=== PATIENT | male | born 1990 | race Caucasian/White ===

== ENCOUNTER 2019-07-03 06:01 | Emergency (ER) | payer SELFPAY ==
[2019-07-03 06:59] VITALS: BMI 25.7
[2019-07-03] MEDS ORDERED: IBUPROFEN 600 MG TABLET (FP) PO ONE ×2 (07:53→08:00)
[2019-07-03] MEDS ORDERED: ONDANSETRON 4 MG TABLET PO PRN (07:54)
--- NOTE | 2019-07-03 07:54 | PDOC ---
History of Present Illness - General Chief Complaint: Chest Pain Stated Complaint: CHEST PAIN Time Seen by Provider: 07/03/19 07:17 - History of Present Illness Initial Comments: 07/03/19 08:21 29 y/o M no significant pmhx presenting to the ED with chest pain that started yesterday. The pain started after playing soccer and drinking more than 12 cans of beer yesterday evening. Pain is located on the left side of his chest is intermittent (approx. 5mins) and non-radiating. He was unable to describe it's quality. No relieving factors, pain exacerbated by lying on his left sided He rates the pain as a 5/10. He fell on his back and hit the back of his head. He denies nausea, vomiting, cough, sob, fevers, chills, diaphoresis. 07/03/19 08:34 Past History - Past Medical History Allergies/Adverse Reactions: Allergies Allergy/AdvReac Type Severity Reaction Status Date / Time No Known Allergies Allergy Verified 07/03/19 06:59 Home Medications: Ambulatory Orders NK [No Known Home Medication] 07/03/19 COPD: No - Suicide/Smoking/Psychosocial Hx Smoking History: Current every day smoker Number of Cigarettes Smoked Daily: 15 Information on smoking cessation initiated: No Hx Alcohol Use: Yes Drug/Substance Use Hx: No Review of Systems - Review of Systems Constitutional: No: Chills, Diaphoresis, Fever HEENTM: No: Eye Pain, Ear Pain Respiratory: No: Cough, Wheezing Cardiac (ROS): Yes: Symptoms Reported ABD/GI: No: Constipated, Diarrhea : No: Burning, Dysuria Musculoskeletal: No: Muscle Pain, Muscle Weakness Neurological: Yes: Headache. No: Numbness *Physical Exam - Vital Signs Last Vital Signs Temp Pulse Resp BP Pulse Ox 97.8 F 94 H 23 H 109/57 L 96 07/03/19 06:53 07/03/19 06:53 07/03/19 06:53 07/03/19 06:53 07/03/19 06:53 - Physical Exam General Appearance: Yes: Nourished, Appropriately Dressed, Alcohol on Breath. No: Apparent Distress HEENT: positive: Normal Voice. negative: Scleral Icterus (R), Scleral Icterus ( L) Neck: positive: Trachea midline, Supple Respiratory/Chest: positive: Chest Tender, Lungs Clear, Normal Breath Sounds, Other (Pain on left side of chest is reproducible on palpation). negative: Respiratory Distress, Accessory Muscle Use, Decreased Breath Sounds, Rales, Wheezing Cardiovascular: positive: Regular Rhythm, Regular Rate, S1, S2. negative: Edema , JVD Comments:: 07/03/19 08:32 radial pulses 2+ bilaterally Gastrointestinal/Abdominal: positive: Normal Bowel Sounds, Soft. negative: Pulsatile Mass, Decreased BS, Protuberent, Guarding Musculoskeletal: positive: Other (bruising on the right side of his back) Extremity: positive: Normal Capillary Refill, Normal Inspection, Normal Range of Motion Integumentary: positive: Normal Color, Dry, Warm Neurologic: positive: Fully Oriented, Alert Heart Score/ECG Review - History History: Slightly suspicious - Electrocardiogram EKG: Non specific repolarization disturbance - Age Age: </= 45 - Risk Factors Risk Factors Heart Score: No Hx Hypercholesterolemia, No Hx Hypertension, No Hx Diabetes, No Smoking History, No Positive family hx of cardiac disease, No Hx Obesity Based on the list above the patient has:: No risk factors known ED Treatment Course - LABORATORY CBC & Chemistry Diagram: 07/03/19 08:30 07/03/19 08:30 Medical Decision Making - Medical Decision Making 07/03/19 08:34 29 y/o M no significant pmhx presenting to the ED with chest pain that started yesterday. Labs/Imaging/Meds cbc,cmp,cxr pa & lateral, ekg, head ct w/o contrast, FAST Meds: motrin 600mg, 4mg Zofran, Boostrix Results FAST (-) no fluid seen. CXR: no evidence of pulmonary infiltrates, atelactasis, pleural effusion or pneumothorax no hilar adenopathy visualized osseous structures intact Head CT deformity of the left orbital medial wall consistent with chronic fracture no acute pathology identified calvarium is intact CMP/CBC: alt/ast 93/52 cbc wnl Patient seen and reassessed. Patient is AAOX3, NAD, able to ambulate, non- tremulous, and tolerating oral intake. VSS. Patient states that they feel safe going home and have a safe way to get home.. Discussed need to cut down on substance intake. *DC/Admit/Observation/Transfer Diagnosis at time of Disposition: Chest pain, muscular - Discharge Dispostion Disposition: HOME Condition at time of disposition: Stable - Referrals - Patient Instructions Printed Discharge Instructions: DI for Atypical Chest Pain, DI for Alcohol Abuse Additional Instructions: You were seen in the ER today for chest pain which is muscular in nature. You were also evaluated for a fall related to alcohol use. Please do not drink alcohol or ingest any mind-altering substances and drive or make important decisions. Please cut down on your substance use/abuse. 2) You were given information about substance use/abuse. Please review this literature. 3) If you have any worsening of symptoms please return to the ED immediately. 4) Please follow-up with your primary care doctor in the next 5-7 days for evaluation of symptoms. - Post Discharge Activity
[2019-07-03] MEDS ORDERED: ONDANSETRON *ODT* 4 MG TABLET ONE (08:00)
--- NOTE | 2019-07-03 08:02 | PDOC ---
*Physical Exam - Vital Signs Last Vital Signs Temp Pulse Resp BP Pulse Ox 97.8 F 94 H 23 H 109/57 L 96 07/03/19 06:53 07/03/19 06:53 07/03/19 06:53 07/03/19 06:53 07/03/19 06:53
--- NOTE | 2019-07-03 08:12 | PDOC ---
Attending Attestation - Resident Resident Name: CatiaMarsakila - ED Attending Attestation I have performed the following: I have examined & evaluated the patient, The case was reviewed & discussed with the resident, I agree w/resident's findings & plan, Exceptions are as noted - HPI HPI: 07/03/19 08:08 07/03/19 07:55 Ms. Singh is a 29 yo M who presents to the ER with a complaint of chest pain Pt story varies slightly each time it is asked but basically He states he was in his usual state of health Was playing soccer After playing soccer, he noted chest pain, located in the left chest, intermittent, 5/10, no radiation, pain is reproducible Pt denies chest wall trauma but does admit to gaps in his memory Pt states he drank heavily (>12 beers) Fell and struck his head and lacerated his back - Physicial Exam PE: 07/03/19 08:09 Pt is awake and alert Answers questions appropriately Pt seems intoxicated RRR CTA Abd non tender to palpation No deformities of extremities, moving all extremities appropriately 2 lacerations noted on right upper thoracic area, no active bleeding, no surrounding erythema Left occipital abrasion and hematoma - Medical Decision Making 07/03/19 08:11 29 yo M s/p injury while intoxicated Will do: basic labs CT head CXR boostrix Zofran/Motrin Re Assess 07/03/19 09:19 Laboratory Tests 07/03/19 08:30 Sodium 142 Potassium 3.7 Chloride 106 Carbon Dioxide 29 BUN 5.6 L Creatinine 0.6 Random Glucose 93 AST 52 H ALT 93 H 07/03/19 09:55 EKG - HR 70 bpm, R axis deviation, incomplete RBBB, no st elevation, no st depression , t waves upright CXR - nml CT head - left medial orbital wall fracture, no acute fracture/ ICH Will discharge to home Follow up with PMD decrease alcohol use 07/03/19 10:34 Pt d/c vitals: BP 98/67 Vitals repeated: BP:110/63, Map 77, HR:70m O2: 100% clinical impression: alcohol intoxication, initial presentation
[2019-07-03 09:01] LABS: HEMOGLOBIN 14.1 GM/dL (11.7-16.9); MCH 32.7 pg (25.7-33.7); MCHC 34.4 g/dl (32.0-35.9); MEAN CELL VOLUME 95.1 fl (80-96); PLATELET COUNT 329 K/MM3 (134-434); RBC 4.31 M/mm3 (4.00-5.60); RDW 13.5 % (11.9-15.9)
[2019-07-03 09:04] VITALS: TEMP 98.5
[2019-07-03 09:17] LABS: BILIRUBIN,TOTAL 0.2 mg/dL (0.2-1); BLOOD UREA NITROGEN 5.6 mg/dL (7-18); CALCIUM 8.3 mg/dL (8.5-10.1); CREATININE 0.6 mg/dL (0.55-1.3); POTASSIUM 3.7 mmol/L (3.5-5.1); TOT PROT 7.4 g/dl (6.4-8.2)
--- NOTE | 2019-07-03 10:37 | EKG ---
Test Reason : Blood Pressure : / mmHG Vent. Rate : 070 BPM Atrial Rate : 070 BPM P-R Int : 138 ms QRS Dur : 114 ms QT Int : 396 ms P-R-T Axes : 029 095 057 degrees QTc Int : 427 ms NORMAL SINUS RHYTHM RIGHTWARD AXIS INCOMPLETE RIGHT BUNDLE BRANCH BLOCK BORDERLINE ECG NO PREVIOUS ECGS AVAILABLE Confirmed by DEEPA HUFF MD ([id number]) on 07/03/2019 10:37:29 AM Referred By: Confirmed By:DEEPA HUFF MD
[2019-07-03 11:11] VITALS: BP 110/63; PULSE 83
== END 2019-07-03 11:08 | disposition home or self-care (01) ==
LOC: JER 06:01
DX: R07.89 Other chest pain (principal); F17.210 Nicotine dependence, cigarettes, uncomplicated
CPT/HCPCS: 36415; 70450-TC; 71046-TC-FY; 80053; 85027; 93005; 93010; 99284-25